=== PATIENT | male | born 1995 | race Caucasian/White ===

== ENCOUNTER 2019-02-08 10:53 | Emergency (ER) | payer MEDICAID ==
[~2019-02-08] VITALS: Ht 177.8 cm; Wt 71.7 kg
[2019-02-08 11:04] VITALS: BP 141/77
--- NOTE | 2019-02-08 11:09 | NUR ---
PT AMBULATED TO ER BED 10
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
--- NOTE | 2019-02-08 11:40 | NUR ---
DR LANG AT BEDSIDE
[2019-02-08] MEDS ORDERED: ACETAMINOPHEN 325 MG TAB PO ONE (11:55)
--- NOTE | 2019-02-08 12:01 | NUR ---
XRAY AT BEDSIDE FOR INTERVENTION.
--- NOTE | 2019-02-08 12:40 | NUR ---
DR LANG RE-EVALUATING PT
[2019-02-08 12:45] VITALS: BP 130/63
--- NOTE | 2019-02-08 12:45 | NUR ---
Patient discharged with v/s stable. Written and verbal after care instructions given and explained TO PATIENT AND MOTHER. Patient verbalized understanding. Ambulatory with steady gait. All questions addressed prior to discharge. Advised to follow up with PMD. PATIENT INSTRUCTED TO TAKE OTC IBUFROEN AND TYLENOL FOR PAIN, AND RETURN IF SYMPTOMS WORSEN.
== END 2019-02-08 12:45 | disposition home or self-care (01) ==
LOC: MED 10:53
DX: S20.219A Contusion of unspecified front wall of thorax, initial encounter (principal); R51 Headache; Z98.890 Other specified postprocedural states; V43.92XA Unspecified car occupant injured in collision with other type car in traffic accident, initial encounter; Y93.89 Activity, other specified; Y92.89 Other specified places as the place of occurrence of the external cause; Y99.8 Other external cause status
CPT/HCPCS: 71045; 99283; Q0092